=== PATIENT | female | born 1985 | race Caucasian/White ===

== ENCOUNTER 2016-06-04 19:22 | Emergency (ER) | payer OTHER ==
[2016-06-04] MEDS ORDERED: ACETAMINOPHEN 325 MG TABLET ONE (20:45)
[2016-06-04 20:58] LABS: ABSOLUTE NEUTROPHIL COUNT 3.5 K/mm3 (1.8-7.7); BASO % 0.5 % (0.2-1.0); EOS # 0.3 (0.0-0.5); EOS % 4.1 % (0.9-2.9); HEMATOCRIT 37.3 % (37.0-47.0); HEMOGLOBIN 12.6 gm/l (12.0-16.0); IMM NEUT% 0.2 % (0-1); LYMPH # 1.9 (1.0-4.8); LYMPH % 31.7 % (15-45); MEAN CELL VOLUME 90.3 fl (81.0-99.0); MEAN CORPUSCULAR HEMOGLOBIN 30.5 pg (27.0-31.0); MEAN CORPUSCULAR HGB CONC 33.8 g/dl (33.0-37.0); MEAN PLATELET VOLUME 10.8 fl (7.4-10.4); MONO # 0.3 (0.0-0.8); MONO % 5.3 % (4-12); NEUT % 58.2 % (43-75); PLATELET COUNT 192 K/mm3 (130-400); RED CELL DISTRIBUTION WIDTH 13.2 % (11.5-14.5)
[2016-06-04 21:08] LABS: ALB/GLOB RATIO 1.3 (>1.0); ALBUMIN 3.8 gm/dL (3.5-5.7)
[2016-06-04 21:21] LABS: URINE BILIRUBIN NEGATIVE (NEGATIVE); URINE BLOOD NEGATIVE (NEGATIVE); URINE GLUCOSE (UA) NEGATIVE (NEGATIVE); URINE LEUKOCYTE ESTERASE NEGATIVE (NEGATIVE); URINE NITRITE NEGATIVE (NEGATIVE); URINE PROTEIN NEGATIVE (NEGATIVE); URINE UROBILINOGEN NORMAL (0-1 mg/dl)
[2016-06-04 21:28] LABS: URINE APPEARANCE CLEAR; URINE COLOR LIGHT YELLOW
--- NOTE | 2016-06-05 09:52 | US ---
RENAL LTD/AORTA/BLADDER COMPARISON: None. HISTORY: 30 years old. Gestational age 5 weeks 5 days. Left flank pain for 2 days. History of kidney stones. Hematuria and dysuria. Limited ultrasound of the left kidney only. FINDINGS: Left kidney: Normal size, length 11.1 cm. Normal cortical thickness of 6.4 mm and normal echogenicity. Mild hydronephrosis. Multiple echogenic foci, evidence of kidney stones, up to 3.6 mm. No cyst or solid lesion. IMPRESSION: Mild left hydronephrosis. Multiple nonobstructing renal calculi up to 3.6 mm. Preliminary report by [facility] radiologist Rob Angulo M.D. 06/04/2016 at 22:45
--- NOTE | 2016-06-05 09:58 | US ---
OB COMP <14 WKS, OB TRANSVAGINAL CLINICAL HISTORY: 30-year-old first trimester , left lower quadrant pain for 2 days. COMPARISON: None TECHNIQUE: Transabdominal and transvaginal. FINDINGS: Uterus: Single intrauterine gestation. Gestational sac size and shape: Normal size and shape. Mean sac diameter: 0.84 cm = 4 weeks 6 days. [place] rump length: 0.22 cm = 5 weeks 5 days. Estimated date of confinement: 01/30/2017 Embryo: Yes Yolks sac: Yes heart tones: No Beats per minute Somatic motion: Too early to comment. Placenta: Too early to comment. Previa: Too early comment. Keyla-gestational bleed: None. Right ovary: 2.1 x 1.0 x 2.1 cm. Normal blood flow. Left ovary: 3.2 x 1.8 x 2.4 cm. Normal blood flow. Impression: Intrauterine . Gestational sac containing a yolk sac and embryo, gestational age 5 weeks 5 days, without detectable embryo heart tones. Preliminary report by [facility] radiologist Rob Angulo M.D. 06/04/2016 at 22:47
== END 2016-06-04 23:22 | disposition home or self-care (01) ==
LOC: ED 19:22
DX: O26.891 Other specified pregnancy related conditions, first trimester (principal); Z3A.01 Less than 8 weeks gestation of pregnancy; N20.0 Calculus of kidney; Z87.442 Personal history of urinary calculi
CPT/HCPCS: 83690; 84702; 85025; 87086; 80053; 81003; 76817; 76801; 76775; 99284 ×2; A9270

== ENCOUNTER 2016-07-06 15:31 | Emergency (ER) | payer OTHER ==
[2016-07-06 17:01] LABS: SPECIFIC GRAVITY 1.015 (1.001-1.030); URINE BILIRUBIN NEGATIVE (NEGATIVE); URINE BLOOD NEGATIVE (NEGATIVE); URINE GLUCOSE (UA) 1+ (NEGATIVE); URINE LEUKOCYTE ESTERASE NEGATIVE (NEGATIVE); URINE NITRITE NEGATIVE (NEGATIVE); URINE PROTEIN NEGATIVE (NEGATIVE); URINE UROBILINOGEN NORMAL (0-1 mg/dl)
[2016-07-06 17:02] LABS: URINE APPEARANCE CLEAR; URINE COLOR STRAW
[2016-07-08 07:37] LABS: CHLAMYDIA BD Negative; N.GONORRHOEAE BD Negative; SOURCE Urine
== END 2016-07-06 18:28 | disposition home or self-care (01) ==
LOC: ED 15:31
DX: O20.0 Threatened abortion (principal); O20.8 Other hemorrhage in early pregnancy; Z3A.10 10 weeks gestation of pregnancy; Z79.899 Other long term (current) drug therapy